=== PATIENT | female | born 1935 ===

== ENCOUNTER 2016-11-15 07:25 | Day surgery (SDC) | payer MEDICARE, OTHER ==
[2016-11-06 09:16] VITALS: BMI 35.9
[2016-11-15] MEDS ORDERED: Propofol 10 mg/ml Inj (20 ML) ONE ×2 (10:02→10:10)
[2016-11-15] MEDS ORDERED: Lactated Ringer's 1,000 ML IV SCH (10:30)
[2016-11-15 14:23] VITALS: BP 139/52; PULSE 64; RESP 16; TEMP 97.6; O2SAT 99
== END 2016-11-15 14:01 | disposition home or self-care (01) ==
LOC: ENDO 07:25
PROVIDERS: ATTEND Internal Medicine Gastroenterology
DX: K25.9 Gastric ulcer, unspecified as acute or chronic, without hemorrhage or perforation (principal); K57.30 Diverticulosis of large intestine without perforation or abscess without bleeding; K21.0 Gastro-esophageal reflux disease with esophagitis; K29.50 Unspecified chronic gastritis without bleeding; B96.81 Helicobacter pylori [H. pylori] as the cause of diseases classified elsewhere; D50.9 Iron deficiency anemia, unspecified; K64.8 Other hemorrhoids; K64.4 Residual hemorrhoidal skin tags
CPT/HCPCS: 43239; 45378; 82948; 88305; 88312; 88342; J2001; J2704; J3010; J7040; J7120